=== PATIENT | male | born 1990 | race Caucasian/White ===

== ENCOUNTER 2021-10-06 16:42 | Emergency (ER) | payer SELFPAY ==
[~2021-10-06] VITALS: Ht 187.9 cm; Wt 85.0 kg
[2021-10-06] MEDS ORDERED: LIDOCAINE/EPI 2% 1:200,00 (XYLOCAINE) 10 ML VIAL ONE (17:02)
[2021-10-06] MEDS ORDERED: AMOX500C2 PO (17:17)
--- NOTE | 2021-10-06 17:17 | ED EENT ---
History of Present Illness General Chief Complaint: Laceration Stated Complaint: BUSTED LIP Nursing Triage Note: PT AMB TO [facility] WITH FRIEND. FRIEND TRANSLATED FOR PT STATING THAT HE BUSTED HIS LIP WHEN A PIECE OF WOOD FELL ON HIS FACE. PT TOOK TYLENOL FOR PAIN AT 1400. Source: patient Exam Limitations: no limitations History of Present Illness Date Seen by Provider: Oct 06, 2021 Time Seen by Provider: 17:13 Initial Comments To ER by private vehicle with reports of an upper lip laceration. This occurred at about 1 PM today. Tetanus was updated within the past 5 years. No loss of consciousness no dental injury or loose teeth. Timing/Duration: abrupt Severity: moderate Prearrival Treatment: no prearrival treatment Associated Symptoms: denies symptoms Allergies and Home Medications Patient Home Medication List Home Medication List Reviewed: Yes Review of Systems Review of Systems Constitutional: see HPI Eyes: No Symptoms Reported Ears: No Symptoms Reported Nose: no symptoms reported Mouth: see HPI Throat: no symptoms reported Respiratory: no symptoms reported Cardiovascular: no symptoms reported Musculoskeletal: no symptoms reported Skin: no symptoms reported Past Gxojjls-[id number]-Cbvwhf Hx Patient Social History Tobacco Use?: No Substance use?: No Alcohol Use?: Yes Alcohol Frequency: Once in a while Pt feels they are or have been: Unable to obtain Immunizations Up To Date Influenza Vaccine Up-to-Date: No; Not Current Physical Exam Vital Signs Vital Signs - First Documented 10/06/21 16:50 Pulse 64 Resp 16 B/P (MAP) 145/79 (101) Pulse Ox 98 O2 Delivery Room Air Height, Weight, BMI Height: '" Weight: lbs. oz. kg; 24.00 BMI Method: General Appearance: WD/WN, no apparent distress Eyes: bilateral eye normal inspection, bilateral eye PERRL, bilateral eye EOMI Ears: bilateral ear auricle normal, bilateral ear canal normal, bilateral ear TM normal Mouth/Throat: other (1 cm laceration depth to the subcutaneous tissue midline upper lip no dental injury. No bleeding. No foreign bodies.) Neck: non-tender, full range of motion Respiratory: normal breath sounds, no respiratory distress, no accessory muscle use Gastrointestinal: normal bowel sounds, non tender Neurologic/Psychiatric: alert, normal mood/affect, oriented x 3 Skin: normal color, warm/dry Procedures/Interventions Wound Location: Face Wound Length (cm): 1 Wound's Depth, Shape: linear, sub Q Wound Explored: clean Anesthesia: Lidocaine w/ Epi Volume Anesthetic (ccs): 1 Suture: Plain, Chromic Suture Size: 5-0 Number of Sutures: 3 Layer Closure?: 1 Number Deep Layer Sutures: 0 Progress/Results/Core Measures Results/Orders Vital Signs/I&O 10/06/21 16:50 Pulse 64 Resp 16 B/P (MAP) 145/79 (101) Pulse Ox 98 O2 Delivery Room Air Blood Pressure Mean: 101 Departure Impression Primary Impression: Lip laceration Disposition: HOME, SELF-CARE Condition: Stable Departure-Patient Inst. Decision time for Depature: 17:16 Referrals: NO,LOCAL PHYSICIAN (PCP/Family) Primary Care Physician Patient Instructions: Laceration Repair With Stitches ED Add. Discharge Instructions: 1. Return to ER for any concerns. Follow-up with your doctor next week. All discharge instructions reviewed with patient and/or family. Voiced understanding. Scripts Amoxicillin (Amoxicillin) 500 Mg Capsule 500 MG PO TID, #15 CAP 0 Refills Prov: VIKRAM MONROE APRN 10/06/21 VIKRAM MONROE APRN Oct 06, 2021 17:17
[2021-10-06 17:28] VITALS: BP 145/79
== END 2021-10-06 17:29 | disposition home or self-care (01) ==
LOC: ER 16:45
DX: S01.511A Laceration without foreign body of lip, initial encounter (principal); W20.8XXA Other cause of strike by thrown, projected or falling object, initial encounter
CPT/HCPCS: 12011